=== PATIENT | male | born 1950 | race Caucasian/White ===

== ENCOUNTER 2024-10-14 10:24 | Outpatient (CLI) | payer MEDICARE | END 2024-10-14 10:25 | disposition home or self-care (01) | LOC: CSHMRI 10:24 | PROVIDERS: ATTEND Family Medicine Sports Medicine | DX: M54.42 Lumbago with sciatica, left side (principal); M47.816 Spondylosis without myelopathy or radiculopathy, lumbar region; M47.817 Spondylosis without myelopathy or radiculopathy, lumbosacral region; M25.48 Effusion, other site | CPT/HCPCS: 72148 ==